=== PATIENT | female | born 1970 | race Caucasian/White ===

== ENCOUNTER 2024-03-03 10:31 | Emergency (ER) | payer MEDICARE ==
[~2024-03-03] VITALS: Ht 172.7 cm; Wt 64.5 kg
[~2024-03-03 10:31] MED LIST: AMBIEN 10MG10 MG PO; LITHIUM CARBON150 MG PO; NORCO 325 MG-7.1 TAB PO; PREDNISONE20 MG PO; TREXALL5 MG; VALIUM 5MG T5 MG/TAB PO; ZOLOFT 100MG100 MG PO
[2024-03-03 10:33] VITALS: TEMP 97.9
[2024-03-03] MEDS ORDERED: Albuterol 0.083% Neb Soln 2.5 MG/3 ML UD IH ONE (10:45)
[2024-03-03] MEDS ORDERED: methylPREDNISolone Sod Succ 125 MG/2 ML VIAL IV ONE (11:00)
[2024-03-03 11:01] LABS: BASO % 0.6 % (0.0-2.0); EOS # 0.4 K/mm3 (0.0-0.7); EOS % 8.5 % (0.0-4.0); GRAN # 2.6 K/mm3 (1.4-6.5); GRAN % 51.9 % (42.2-75.2); HEMATOCRIT 37.2 % (37.0-47.0); HEMOGLOBIN 12.7 g/dl (12.5-16.0); LYMPH # 1.8 K/mm3 (1.2-3.4); LYMPH % 34.6 % (20.0-51.0); MEAN CELL VOLUME 86 fl (80.0-100.0); MEAN CORPUSCULAR HEMOGLOBIN 29 pg (27-31); MEAN CORPUSCULAR HGB CONC 34 g/dl (33.0-37.0); MEAN PLATELET VOLUME 8.9 fl (7.4-10.4); MONO # 0.2 K/mm3 (0.1-0.6); MONO % 4.2 % (1.7-9.3); PLATELET COUNT 234 K/mm3 (130-400); RED BLOOD COUNT 4.34 M/mm3 (4.10-5.30); REDCELL DISTRIBUTION WIDTH-CV 12.9 % (11.5-14.5)
[2024-03-03 11:26] LABS: ALBUMIN 3.9 g/dL (3.5-5.0); BILIRUBIN,TOTAL 0.2 mg/dL (0.2-1.2); C-REACTIVE PROTEIN 0.17 mg/dL (0.00-0.50); CALCIUM 9.3 mg/dL (8.4-10.2); CREATININE, serum 0.95 mg/dL (0.57-1.11); POTASSIUM 3.3 mEq/L (3.5-4.5); TOTAL PROTEIN 7.2 g/dl (6.2-8.1)
[2024-03-03 11:31] LABS: TROPONIN-I 0.015 ng/mL (0.00-0.033)
[2024-03-03] MEDS ORDERED: Iohexol 300 - 100 ML VIAL IV ONE (12:25)
[2024-03-03] MEDS ORDERED: NS 100 ML IV SCH (12:31)
[2024-03-03] MEDS ORDERED: Albuterol/Ipratropium 3 MG-0.5 MG/3 ML Neb Soln IH SCH (14:00)
[2024-03-03] MEDS ORDERED: ATIVAN 0.50.5 MG/TAB PO (14:25)
[2024-03-03] MEDS ORDERED: BUSPIRONE HCL7.5 MG PO (14:26)
[2024-03-03] MEDS ORDERED: SINGULAIR 110 MG/TAB PO (14:28)
[2024-03-03] MEDS ORDERED: IPRATROPIUM BROM3 M1 IH (14:28)
[2024-03-03] MEDS ORDERED: PULMICORT0.5 MG/2 M IH (14:29)
[2024-03-03] MEDS ORDERED: PROTONIX 40MG T40 MG PO (14:29)
[2024-03-03] MEDS ORDERED: BROVANA15 MCG/2 M IH (14:30)
[2024-03-03] MEDS ORDERED: YUPELRI175 MCG/3 IH (14:33)
[2024-03-03] MEDS ORDERED: PROAIR HFA0.09 MG/AC IH (14:33)
[2024-03-03] MEDS ORDERED: BEVESPI AEROS10.7 GM IH (14:33)
[2024-03-03] MEDS ORDERED: ANORO IH (16:01)
[2024-03-03] MEDS ORDERED: LEVAQUIN 5500 MG/TA1 PO (16:24)
[2024-03-03] MEDS ORDERED: PREDNISONE20 MG PO (16:24)
[2024-03-03] MEDS ORDERED: levoFLOXacin 500 MG TAB PO ONE (16:30)
[2024-03-03 16:48] VITALS: BP 137/62; PULSE 79
== END 2024-03-03 16:50 | disposition home or self-care (01) ==
LOC: COL.ER 10:31 → MEDICAL 13:38 → COL.ER 16:50
PROVIDERS: Nurse Practitioner
DX: J44.1 Chronic obstructive pulmonary disease with (acute) exacerbation (principal)
CPT/HCPCS: J2919; Q9967

== ENCOUNTER → 2024-03-09 | Outpatient (CLI) | payer MEDICARE, MEDICAID ==
[~2024-03-09] MED LIST changes: +ANORO IH; +ATIVAN 0.50.5 MG/TAB PO; +BEVESPI AEROS10.7 GM IH; +BROVANA15 MCG/2 M IH; +BUSPIRONE HCL7.5 MG PO; +IPRATROPIUM BROM3 M1 IH; +LEVAQUIN 5500 MG/TA1 PO; +PROAIR HFA0.09 MG/AC IH; +PROTONIX 40MG T40 MG PO; +PULMICORT0.5 MG/2 M IH; +SINGULAIR 110 MG/TAB PO; +YUPELRI175 MCG/3 IH
== END ==
LOC: COL.RAD 07:34
DX: R93.7 Abnormal findings on diagnostic imaging of other parts of musculoskeletal system (principal); M25.562 Pain in left knee
CPT/HCPCS: A9503-JZ

== ENCOUNTER 2024-03-22 07:47 | Day surgery (SDC) | payer MEDICARE, MEDICAID ==
[~2024-03-22] VITALS: Ht 172.7 cm; Wt 62.3 kg
[~2024-03-22 07:47] MED LIST changes: +LR 1,000 ML IV SCH
[2024-03-22 08:52] VITALS: BP 130/79; PULSE 75; TEMP 97.9
--- NOTE | 2024-03-22 09:42 | NUR ---
Contact made with NAKIA Leon in Ambulatory. Pt is scheduled for surgery at 1530. Pt wishes to leave hospital to spend time with family and return closer to procedure time. Carolyn aware. Pt understands NPO status. She and daughter instructed that they should return around 1230 to registration desk, and will be directed to Ambulatory. Pt expresses understanding. PICC line wrapped with mario.
[2024-03-22] MEDS ORDERED: HYDROmorphone 1 MG/1 ML SYRINGE [PACU/SDC ONLY] IV PRN (10:45)
[2024-03-22] MEDS ORDERED: droPERidol 2.5 MG/ML 2 ML VIAL IV PRN (10:45)
[2024-03-22] MEDS ORDERED: hydrALAZINE 20 MG/ML 1 ML VIAL IV PRN (10:45)
[2024-03-22] MEDS ORDERED: Meperidine 50 MG/ML 1 ML VIAL IV PRN (10:45)
[2024-03-22] MEDS ORDERED: Ondansetron 4 MG/2 ML VIAL IV PRN (10:45)
[2024-03-22] MEDS ORDERED: fentaNYL 50 MCG/ML 1 ML SYRINGE/VIAL [PACU/SDC ONLY] IV PRN ×2 (10:45)
[2024-03-22 12:47] VITALS: BP 122/74; PULSE 80; TEMP 98
[2024-03-22] MEDS ORDERED: HYDROcodone/Acetaminophen 7.5-325 MG TAB PO PRN ×2 (13:00→16:00)
[2024-03-22] MEDS ORDERED: Ketorolac 15 MG/ML VIAL IV ONE (13:15)
[2024-03-22] MEDS ORDERED: diphenhydrAMINE 50 MG/ML 1 ML VIAL IV ONE (13:30)
[2024-03-22] MEDS ORDERED: LORazepam 0.5 MG TAB PO ONE (13:30)
--- NOTE | 2024-03-22 14:03 | NUR ---
1159 Pt admitted to [facility] with at bedside. Alert and oriented x3 and consent signed. Vital signs obtained, assessments completed. Pt requests to wear O2/2L/NC, states she wears it at home at all times, O2 sats 97% on room air. O2/NC provided. Pt with picked scab to left knee, picking at it, encouraged to leave it alone, healing scar to left knee. Pt with a PICC to left upper arm placed this morning, will start Vanco per MD orders, see EMAR. 1245 Pt requests something for pain, reports pain all over, joint ache, 02/11, has not had a pain pill since 729. Lisa Gaming CRNA notified and orders for Doucette 7.5 mg 1 tab now. 1330 EMBOSSING PRESS OPERATOR to bedside and talks with pt, pt had requested Toradol but EMBOSSING PRESS OPERATOR decides not to give it. 1335 Pt reports itchy all over, scratching at back and right ear. Scratch redness to back and right ear slightly red, no hives or rash noted. Pt denies another symptoms, appears anxious, talked with pt about plan of care and pain and she would like an Ativan. Darin EMANUEL updated and orders Benadyl 25 mg IV for itching and Ativan 0.5 mg PO now. See EMAR. Pt's daughter now at bedside and stepped out. Pt resting upon entering room. Call light in reach.
[2024-03-22] MEDS ORDERED: Ondansetron 4 MG/2 ML VIAL ONE (15:29)
[2024-03-22] MEDS ORDERED: fentaNYL 50 MCG/ML 2 ML VIAL ONE (15:31)
[2024-03-22] MEDS ORDERED: Morphine 4 MG/ML VIAL IV PRN (16:00)
[2024-03-22] MEDS ORDERED: Promethazine 25 MG TAB PO PRN (16:00)
[2024-03-22] MEDS ORDERED: oxyCODONE/Acetaminophen 5-325 MG TAB PO PRN (16:00)
[2024-03-22 17:30] VITALS: BP 144/64; PULSE 80; TEMP 97.1
--- NOTE | 2024-03-22 17:38 | NUR ---
Pt returns from PACU at 1730. VSS. Family brought to bedside. Pt falls asleep quickly when not stimulated. Tearful when awake. Pt continually squeezing on her knee, encouraged not to, and to let icepack stay on knee. Muffin and pepsi given per request. Family encouages pt to focus on snack. Cart in low position. Call light within reach. LR infusing to PICC in LUE.
[2024-03-22 17:45] VITALS: BP 119/71; PULSE 89
[2024-03-22 18:00] VITALS: TEMP 97.2
[2024-03-22 18:02] VITALS: BP 131/66; PULSE 82
--- NOTE | 2024-03-22 18:16 | NUR ---
Pt calms, no longer tearful. Takes in snack and drink. Pt and report they want to discharge. VSS. Discharge instructions and education reviewed with patient and . They report that Dr. Rodriguez did fill scripts for her. They state that they are aware of when to report to [facility] for her next antibiotic dose. Discharging home with PICC line. Pt and aware of need to wrap PICC for showering. They report understanding to all discharge instructions. Pt discharges to husbands car at 1810 via w/c. They have a portable oxygen tank for patients PRN oxygen needs. Pts reports that he will have patietn sleep with it while taking pain medications. JUAN wrap dressing to LLE is CDI. CMS WNL. PICC dressing is CDI to MILO.
== END 2024-03-22 18:10 | disposition home or self-care (01) ==
LOC: SDCO 07:47
DX: M86.9 Osteomyelitis, unspecified (principal); M79.5 Residual foreign body in soft tissue; G47.33 Obstructive sleep apnea (adult) (pediatric); Z96.9 Presence of functional implant, unspecified; Z87.891 Personal history of nicotine dependence; Z79.891 Long term (current) use of opiate analgesic
CPT/HCPCS: C1751; J0360; J0665-JZ; J1171; J1200; J2405; J2704; J3010; J3370; J7050; J7120